=== PATIENT | male | born 1945 | race Caucasian/White ===

== ENCOUNTER 2016-08-11 15:46 | Outpatient (CLI) | payer MEDICARE | END 2016-08-11 15:47 | disposition home or self-care (01) | DX: N28.9 Disorder of kidney and ureter, unspecified (principal); R94.5 Abnormal results of liver function studies; E78.5 Hyperlipidemia, unspecified; E03.9 Hypothyroidism, unspecified ==

== ENCOUNTER 2017-03-14 08:24 | Outpatient (CLI) | payer MEDICARE ==
[2017-03-14 12:51] LABS: BASOPHILS # (AUTO) 0.1 10^3/uL (0.0-0.1); BASOPHILS % (AUTO) 0.7 %; EOSINOPHILS # (AUTO) 0.5 10^3/uL (0.0-0.7); EOSINOPHILS % (AUTO) 5.5 %; HGB - HEMOGLOBIN 13.3 g/dL (14.0-18.0); LYMPHOCYTES # (AUTO) 2.1 10^3/uL (1.5-3.5); LYMPHOCYTES % (AUTO) 21.9 %; MEAN CORPUSCULAR HEMOGLOBIN 32.3 pg (27.0-31.0); MEAN CORPUSCULAR VOLUME 94.9 fL (80.0-94.0); MEAN PLATELET VOLUME 7.5 fL (7.4-11.4); MONOCYTES % (AUTO) 10.5 %; NEUTROPHILS % (AUTO) 61.4 %; RED BLOOD COUNT 4.11 10^6/uL (4.70-6.10); RED CELL DISTRIBUTION WIDTH 12.6 % (12.0-15.0); UNCORRECTED WHITE BLOOD COUNT 9.8 x10^3/uL; WHITE BLOOD COUNT 9.8 x10^3/uL (4.8-10.8)
[2017-03-14 13:06] LABS: ALBUMIN/GLOBULIN RATIO 1.3 (1.0-2.2); BILIRUBIN,TOTAL < 0.2 mg/dL (0.2-1.0); BUN - BLOOD UREA NITROGEN 16 mg/dL (6-20); CARBON DIOXIDE - CO2 28 mmol/L (21-32); CHLORIDE 103 mmol/L (101-111); CHOL/HDL RATIO 3.5 (<5.0); CHOLESTEROL 119 mg/dL; CREATININE 1.2 mg/dL (0.6-1.2); GFR - MDRD 59 (>89); GLUCOSE 112 mg/dL (70-100); HDL CHOLESTEROL 34 mg/dL; LDL/HDL RATIO 1.6 (<3.6); POTASSIUM 3.9 mmol/L (3.5-5.0); SODIUM 139 mmol/L (135-145); TOTAL PROTEIN 7.3 g/dL (6.7-8.2); TRIGLYCERIDES 143 mg/dL; VLDL CHOLESTEROL 29 mg/dL
== END 2017-03-14 08:25 | disposition home or self-care (01) ==
LOC: LAB.WCP 08:24
PROVIDERS: ATTEND Family Medicine
DX: N28.9 Disorder of kidney and ureter, unspecified (principal); E78.5 Hyperlipidemia, unspecified; I95.9 Hypotension, unspecified
CPT/HCPCS: 36415; 80053; 80061; 84443; 85025

== ENCOUNTER 2017-11-08 08:00 | Outpatient (CLI) | payer MEDICARE ==
[2017-11-08 12:40] LABS: BASOPHILS # (AUTO) 0.1 10^3/uL (0.0-0.1); BASOPHILS % (AUTO) 0.8 %; EOSINOPHILS # (AUTO) 0.6 10^3/uL (0.0-0.7); EOSINOPHILS % (AUTO) 7.2 %; HGB - HEMOGLOBIN 13.9 g/dL (14.0-18.0); LYMPHOCYTES % (AUTO) 24.8 %; MEAN CORPUSCULAR HEMOGLOBIN 32.8 pg (27.0-31.0); MEAN CORPUSCULAR VOLUME 96.4 fL (80.0-94.0); MEAN PLATELET VOLUME 7.5 fL (7.4-11.4); MONOCYTES # (AUTO) 0.7 10^3/uL (0.0-1.0); NEUTROPHILS # (AUTO) 4.7 10^3/uL (1.5-6.6); NEUTROPHILS % (AUTO) 58.2 %; PLT - PLATELET COUNT 254 10^3/uL (130-450); RED BLOOD COUNT 4.23 10^6/uL (4.70-6.10); RED CELL DISTRIBUTION WIDTH 13.1 % (12.0-15.0); WHITE BLOOD COUNT 8.2 x10^3/uL (4.8-10.8)
[2017-11-08 13:13] LABS: ALBUMIN 4.2 g/dL (3.2-5.5); ALBUMIN/GLOBULIN RATIO 1.5 (1.0-2.2); ALKALINE PHOSPHATASE 48 IU/L (42-121); ALT ALANINE AMINOTRANSFERASE 16 IU/L (10-60); AST ASPARTATE AMINOTRANSFERASE 27 IU/L (10-42); BILIRUBIN,TOTAL 0.4 mg/dL (0.2-1.0); BUN - BLOOD UREA NITROGEN 19 mg/dL (6-20); CARBON DIOXIDE - CO2 29 mmol/L (21-32); CHLORIDE 100 mmol/L (101-111); CHOL/HDL RATIO 3.9 (<5.0); CHOLESTEROL 143 mg/dL; CREATININE 1.4 mg/dL (0.6-1.2); GFR - MDRD 50 (>89); GLUCOSE 121 mg/dL (70-100); HDL CHOLESTEROL 37 mg/dL; LDL CHOLESTEROL,CALCULATED 68 mg/dL; LDL/HDL RATIO 1.8 (<3.6); SODIUM 137 mmol/L (135-145); VLDL CHOLESTEROL 38 mg/dL
== END 2017-11-08 08:01 | disposition home or self-care (01) ==
LOC: LAB.WCP 08:00
PROVIDERS: ATTEND Family Medicine
DX: R73.01 Impaired fasting glucose (principal); E03.9 Hypothyroidism, unspecified; Z12.5 Encounter for screening for malignant neoplasm of prostate; E78.5 Hyperlipidemia, unspecified; R42 Dizziness and giddiness; N28.9 Disorder of kidney and ureter, unspecified
CPT/HCPCS: 36415; 80053; 80061; 84443; 85025; G0103; 83721; 84153

== ENCOUNTER 2018-06-27 11:42 | Outpatient (CLI) | payer MEDICARE ==
[2018-06-27 12:52] LABS: BASOPHILS # (AUTO) 0.1 10^3/uL (0.0-0.1); BASOPHILS % (AUTO) 0.6 %; EOSINOPHILS # (AUTO) 0.5 10^3/uL (0.0-0.7); EOSINOPHILS % (AUTO) 5.1 %; HGB - HEMOGLOBIN 14.1 g/dL (14.0-18.0); LYMPHOCYTES # (AUTO) 2.3 10^3/uL (1.5-3.5); LYMPHOCYTES % (AUTO) 25.6 %; MEAN CORPUSCULAR HEMOGLOBIN 33.5 pg (27.0-31.0); MEAN CORPUSCULAR VOLUME 95.7 fL (80.0-94.0); MONOCYTES # (AUTO) 0.9 10^3/uL (0.0-1.0); MONOCYTES % (AUTO) 9.9 %; NEUTROPHILS # (AUTO) 5.3 10^3/uL (1.5-6.6); NEUTROPHILS % (AUTO) 58.8 %; PLT - PLATELET COUNT 311 10^3/uL (130-450); RED BLOOD COUNT 4.21 10^6/uL (4.70-6.10); RED CELL DISTRIBUTION WIDTH 12.6 % (12.0-15.0); WHITE BLOOD COUNT 9.1 x10^3/uL (4.8-10.8)
[2018-06-27 13:19] LABS: ALBUMIN 4.2 g/dL (3.2-5.5); ALBUMIN/GLOBULIN RATIO 1.2 (1.0-2.2); BILIRUBIN,TOTAL 0.3 mg/dL (0.2-1.0); CALCIUM 9.1 mg/dL (8.5-10.3); CREATININE 1.3 mg/dL (0.6-1.2); TOTAL PROTEIN 7.6 g/dL (6.7-8.2)
--- NOTE | 2018-06-27 14:41 | XRAY Report ---
Reason: DYSPHAGIA,GERD Procedure Date: 06/27/2018 Accession Number: [id number] / [id number] Procedure: XR - Chest 2 View X-Ray CPT Code: 62804 FULL RESULT: EXAM: CHEST RADIOGRAPHY EXAM DATE: 06/27/2018 12:52 PM. CLINICAL HISTORY: Dysphagia, GERD. COMPARISON: Chest 2 view PA/lat 10/11/2016 9:32 AM. TECHNIQUE: 2 views. FINDINGS: Lungs/Pleura: No focal opacities evident. No pleural effusion. No pneumothorax. Normal volumes. Mediastinum: Heart and mediastinal contours are unremarkable. Other: None. IMPRESSION: No hiatal hernia on plain radiograph and no acute cardiopulmonary abnormality. RADIA
== END 2018-06-27 11:43 | disposition home or self-care (01) ==
LOC: LAB 11:42 → DI 11:43
PROVIDERS: ATTEND Internal Medicine Gastroenterology
DX: R13.10 Dysphagia, unspecified (principal); K21.9 Gastro-esophageal reflux disease without esophagitis
CPT/HCPCS: 36415; 71046; 80053; 85025; 93005

== ENCOUNTER 2018-06-29 10:46 | Day surgery (SDC) | payer MEDICARE ==
[2018-06-29] MEDS ORDERED: LACTATED RINGERS 1,000 ML IV ONE (11:51)
[2018-06-29] MEDS ORDERED: fentaNYL 250 MCG/5 ML VIAL IVP ONE (12:54)
[2018-06-29] MEDS ORDERED: LIDO GARGLE 30 ML BOTTLE ONE (12:54)
[2018-06-29] MEDS ORDERED: MIDAZOLAM 2 MG/2 ML VIAL IVP ONE (12:54)
[2018-06-29] MEDS ORDERED: LIDO GARGLE 30 ML BOTTLE TOP ONE (13:00)
[2018-06-29 14:36] VITALS: BP 111/53
== END 2018-06-29 10:47 | disposition home or self-care (01) ==
LOC: SDS 10:46
PROVIDERS: ATTEND Internal Medicine Gastroenterology
PROC: 0DB18ZX Excision of Upper Esophagus, Via Natural or Artificial Opening Endoscopic, Diagnostic (ICD-10-PCS; 2018-06-29)
PROC: 0DBN8ZZ Excision of Sigmoid Colon, Via Natural or Artificial Opening Endoscopic (ICD-10-PCS; principal; 2018-06-29 12:00)
PROC: 0DB38ZX Excision of Lower Esophagus, Via Natural or Artificial Opening Endoscopic, Diagnostic (ICD-10-PCS; 2018-06-29 12:00)
DX: Z12.11 Encounter for screening for malignant neoplasm of colon (principal); D12.5 Benign neoplasm of sigmoid colon; K22.10 Ulcer of esophagus without bleeding; R13.10 Dysphagia, unspecified; K21.9 Gastro-esophageal reflux disease without esophagitis; J44.9 Chronic obstructive pulmonary disease, unspecified; Z87.891 Personal history of nicotine dependence; E78.5 Hyperlipidemia, unspecified
CPT/HCPCS: 43239; 45380; A9270; J3010; J7120

== ENCOUNTER 2018-10-14 13:11 | Emergency (ER) | payer MEDICARE ==
[2018-10-14 13:19] VITALS: BP 102/58
--- NOTE | 2018-10-14 13:38 | ED Physician Documentation ---
PD HPI LOWER EXT INJURY - Stated complaint Stated Complaint: L ANKLE INJ - Chief complaint Chief Complaint: Ext Problem - History obtained from History obtained from: Patient - History of Present Illness PD HPI LOW EXT INJURY LOCATION: Left, Ankle Type of injury: Fall (He slipped and fell last night, it sounds like he forcefully plantarflexed his right foot and hurts the ankle. He has no pain at rest but severe pain when he tries to walk or bear weight. No other injuries.) Review of Systems Constitutional: reports: Reviewed and negative Cardiac: reports: Reviewed and negative Respiratory: reports: Reviewed and negative PD PAST MEDICAL HISTORY - Past Medical History Cardiovascular: High cholesterol Respiratory: Asthma, COPD Endocrine/Autoimmune: HyPOthyroidism GI: None : None HEENT: None Psych: Depression, Anxiety, Panic attacks Musculoskeletal: Osteoarthritis Derm: Eczema - Past Surgical History General: Colonoscopy Ortho: Other HEENT: Other - Present Medications Home Medications: Ambulatory Orders Medication Instructions Recorded Confirmed Albuterol [Proventil Hfa] 1 puffs INH Q4-6H 03/28/13 01/12/14 QUEtiapine [SEROquel] 200 mg PO QPM 03/28/13 01/12/14 RX: Simvastatin 40 mg PO DAILY 03/28/13 01/12/14 busPIRone [Buspar] 30 mg PO TID 03/28/13 01/12/14 Alprazolam [Xanax] 0.5 mg PO DAILY 03/29/13 01/12/14 Brimonidine 0.15% Ophth Drops 1 drops OPTH BID 03/29/13 01/12/14 [Alphagan P 0.15%] Brinzolamide 1% Ophth Drops [Azopt] 1 drops OPTH BID 03/29/13 01/12/14 Umeclidinium Brm/Vilanterol Tr 1 each IH DAILY 06/28/18 06/28/18 [Anoro Ellipta 62.5-25 Mcg INH] Knee Scooter 1 unit TD ONCE #1 10/14/18 - Allergies Allergies/Adverse Reactions: Allergies Allergy/AdvReac Type Severity Reaction Status Date / Time No Known Drug Allergies Allergy Verified 10/14/18 13:19 - Social History Does the pt smoke?: No Smoking Status: Never smoker Does the pt drink ETOH?: No Does the pt have substance abuse?: No - Immunizations Immunizations are current?: Yes PD ED PE NORMAL - Vitals Vital signs reviewed: Yes - General General: Alert and oriented X 3, No acute distress - Extremities Extremities: Other (Left leg: No proximal fibular tenderness. He is quite tender over the lateral malleolus and just superior to this. Very mild medial malleolar tenderness. No foot tenderness. No calcaneal tenderness. No Achilles tenderness.) - Neuro Neuro: Alert and oriented X 3, Normal speech Results - Vitals Vitals: Vital Signs - 24 hr 10/14/18 13:17 Temperature 36.2 C L Heart Rate 72 Respiratory 22 Rate Blood Pressure 102/58 L O2 Saturation 97 Oxygen O2 Source Room air - Rads (name of study) L ankle 3v Radiology: EMP read contemporaneously (Carli B minimally displaced distal fibular fracture with nondisplaced posterior mall frx) Procedures - Splint (location) L ankle Splint applied by: Tech Type of splint: Fiberglass, Short leg, Posterior Other: Patient tolerated well, No complications, Neurovascular intact, Crutches provided Departure - Departure Disposition: 01 Home, Self Care Clinical Impression: Closed fracture of left distal fibula Condition: Good Record reviewed to determine appropriate education?: Yes Instructions: ED Fx Lower Ext Follow-Up: [facility] [Provider Group] - Within 1 week Prescriptions: Knee Scooter 1 unit TD ONCE #1 Comments: Keep it elevated as much as possible, ice it through the splint. Follow-up with the orthopedic surgeon within the week, call Tuesday for an appointment. Tylenol as needed for pain. Discharge Date/Time: 10/14/18 14:25
--- NOTE | 2018-10-14 14:17 | XRAY Report ---
Reason: injury Procedure Date: 10/14/2018 Accession Number: [id number] / [id number] Procedure: XR - Ankle 3 View LT CPT Code: FULL RESULT: EXAM: LEFT ANKLE RADIOGRAPHY EXAM DATE: 10/14/2018 01:56 PM. CLINICAL HISTORY: Left ankle swollen and bruised COMPARISON: None. TECHNIQUE: 3 views. FINDINGS: Bones: Fracture of the distal left fibula extending to the ankle mortise with minimal posterolateral displacement of the distal fracture fragment by one cortical width. Nondisplaced posterior malleolar fracture. Joints: Nonweightbearing exam. Large tibiotalar effusion. Soft Tissues: Marked soft tissue swelling about the ankle IMPRESSION: 1. Distal left fibular fracture with minimal posterolateral displacement of the distal fracture fragment by one cortical width. 2. Nondisplaced posterior malleolar fracture. 3. Large tibiotalar fusion and marked soft tissue swelling RADIA
== END 2018-10-14 14:25 | disposition home or self-care (01) ==
LOC: ED 13:11
DX: S82.832A Other fracture of upper and lower end of left fibula, initial encounter for closed fracture (principal); S82.892A Other fracture of left lower leg, initial encounter for closed fracture; W01.0XXA Fall on same level from slipping, tripping and stumbling without subsequent striking against object, initial encounter; Y92.480 Sidewalk as the place of occurrence of the external cause
CPT/HCPCS: 29515; 99282; 99283

== ENCOUNTER 2019-01-19 09:50 | Outpatient (CLI) | payer MEDICARE ==
[2019-01-19 13:22] LABS: BASOPHILS # (AUTO) 0.1 10^3/uL (0.0-0.1); BASOPHILS % (AUTO) 1.2 %; EOSINOPHILS # (AUTO) 0.6 10^3/uL (0.0-0.7); EOSINOPHILS % (AUTO) 8.5 %; HGB - HEMOGLOBIN 13.3 g/dL (14.0-18.0); LYMPHOCYTES # (AUTO) 2.2 10^3/uL (1.5-3.5); LYMPHOCYTES % (AUTO) 33.2 %; MEAN CORPUSCULAR HEMOGLOBIN 31.4 pg (27.0-31.0); MEAN CORPUSCULAR HGB CONC 31.7 g/dL (32.0-36.0); MEAN CORPUSCULAR VOLUME 99.3 fL (80.0-94.0); MEAN PLATELET VOLUME 9.4 fL (7.4-11.4); MONOCYTES # (AUTO) 0.7 10^3/uL (0.0-1.0); MONOCYTES % (AUTO) 10.6 %; NEUTROPHILS # (AUTO) 3.1 10^3/uL (1.5-6.6); NEUTROPHILS % (AUTO) 46.2 %; PLT - PLATELET COUNT 260 10^3/uL (130-450); RED BLOOD COUNT 4.23 10^6/uL (4.70-6.10); RED CELL DISTRIBUTION WIDTH 13.2 % (12.0-15.0); WHITE BLOOD COUNT 6.6 x10^3/uL (4.8-10.8)
[2019-01-19 13:45] LABS: ALBUMIN 4.1 g/dL (3.2-5.5); ALBUMIN/GLOBULIN RATIO 1.2 (1.0-2.2); ALKALINE PHOSPHATASE 79 IU/L (42-121); ALT ALANINE AMINOTRANSFERASE 15 IU/L (10-60); AST ASPARTATE AMINOTRANSFERASE 22 IU/L (10-42); BILIRUBIN,TOTAL 0.5 mg/dL (0.2-1.0); BUN - BLOOD UREA NITROGEN 12 mg/dL (6-20); CALCIUM 9.1 mg/dL (8.5-10.3); CARBON DIOXIDE - CO2 26 mmol/L (21-32); CHLORIDE 104 mmol/L (101-111); CHOL/HDL RATIO 4.6 (<5.0); CHOLESTEROL 171 mg/dL; CREATININE 1.3 mg/dL (0.6-1.2); GFR - MDRD 54 (>89); GLUCOSE 125 mg/dL (70-100); HDL CHOLESTEROL 37 mg/dL; LDL CHOLESTEROL,CALCULATED 69 mg/dL; LDL/HDL RATIO 1.9 (<3.6); SODIUM 141 mmol/L (135-145); TOTAL PROTEIN 7.4 g/dL (6.7-8.2); VLDL CHOLESTEROL 65 mg/dL
== END 2019-01-19 09:51 | disposition home or self-care (01) ==
LOC: LAB.WCP 09:50
PROVIDERS: ATTEND Physician Assistant Medical
DX: E78.5 Hyperlipidemia, unspecified (principal); E03.9 Hypothyroidism, unspecified
CPT/HCPCS: 36415; 80053; 80061; 83721; 84443; 85025

== ENCOUNTER 2019-07-19 09:38 | Outpatient (CLI) | payer MEDICARE ==
[2019-07-19 12:35] LABS: ALBUMIN/GLOBULIN RATIO 1.3 (1.0-2.2); ALKALINE PHOSPHATASE 71 IU/L (42-121); ALT ALANINE AMINOTRANSFERASE 20 IU/L (10-60); AST ASPARTATE AMINOTRANSFERASE 25 IU/L (10-42); BILIRUBIN,TOTAL 0.4 mg/dL (0.2-1.0); BUN - BLOOD UREA NITROGEN 19 mg/dL (6-20); CALCIUM 9.3 mg/dL (8.5-10.3); CARBON DIOXIDE - CO2 33 mmol/L (21-32); CHLORIDE 100 mmol/L (101-111); CHOL/HDL RATIO 3.3 (<5.0); CHOLESTEROL 153 mg/dL; CREATININE 1.1 mg/dL (0.6-1.2); GFR - MDRD 65 (>89); GLUCOSE 119 mg/dL (70-100); HDL CHOLESTEROL 47 mg/dL; LDL CHOLESTEROL,CALCULATED 78 mg/dL; LDL/HDL RATIO 1.7 (<3.6); SODIUM 142 mmol/L (135-145); TOTAL PROTEIN 7.1 g/dL (6.7-8.2); VLDL CHOLESTEROL 28 mg/dL
[2019-07-19 13:00] LABS: HB2 TOTAL 13.9 g/dL; HEMOGLOBIN A1C 0.61 g/dL; HEMOGLOBIN A1C % 6.2 % (4.6-6.2)
== END 2019-07-19 23:59 | disposition home or self-care (01) ==
LOC: LAB.WCP 09:38
PROVIDERS: ATTEND Physician Assistant Medical
DX: E78.5 Hyperlipidemia, unspecified (principal); R73.9 Hyperglycemia, unspecified
CPT/HCPCS: 36415; 80053; 80061; 83036; 83721

== ENCOUNTER 2019-10-04 13:57 | Outpatient (CLI) | payer MEDICARE ==
--- NOTE | 2019-10-04 16:18 | XRAY Report ---
Reason: COPD Procedure Date: 10/04/2019 Accession Number: [id number] / [id number] Procedure: WCP - Chest 2 View X-Ray CPT Code: 87396 Final Report FULL RESULT: EXAM: CHEST RADIOGRAPHY EXAM DATE: 10/04/2019 02:24 PM. CLINICAL HISTORY: COPD. COMPARISON: CHEST 2 VIEW 06/27/2018 12:49 PM. TECHNIQUE: 2 views. FINDINGS: Lungs/Pleura: Linear basilar scarring. Upper normal lung volumes. No dense consolidation. No pneumothorax. Right lung granulomas noted. Mediastinum: Heart size is normal. Aorta is tortuous. Aortic atherosclerosis. Other: Degenerative changes of the thoracic spine. Healed left rib fractures. IMPRESSION: 1. No acute disease in the chest. RADIA
== END 2019-10-04 23:59 | disposition home or self-care (01) ==
LOC: DI.WCP 13:57
PROVIDERS: ATTEND Physician Assistant Medical
DX: J44.9 Chronic obstructive pulmonary disease, unspecified (principal)
CPT/HCPCS: 71046

== ENCOUNTER 2019-10-10 14:45 | Outpatient (CLI) | payer MEDICARE ==
[~2019-10-10 14:45] MED LIST: ALBUTEROL NEB 2.5 MG/3 ML INH SCH
== END 2019-10-10 14:46 | disposition home or self-care (01) ==
LOC: RT 14:45
PROVIDERS: ATTEND Physician Assistant Medical
DX: J44.9 Chronic obstructive pulmonary disease, unspecified (principal)
CPT/HCPCS: 94060; 94729

== ENCOUNTER 2020-01-18 09:03 | Outpatient (CLI) | payer MEDICARE ==
[2020-01-18 11:52] LABS: ALBUMIN/GLOBULIN RATIO 1.3 (1.0-2.2); ALKALINE PHOSPHATASE 79 IU/L (42-121); ALT ALANINE AMINOTRANSFERASE 14 IU/L (10-60); AST ASPARTATE AMINOTRANSFERASE 20 IU/L (10-42); BILIRUBIN,TOTAL 0.4 mg/dL (0.2-1.0); BUN - BLOOD UREA NITROGEN 20 mg/dL (6-20); CALCIUM 8.6 mg/dL (8.5-10.3); CARBON DIOXIDE - CO2 31 mmol/L (21-32); CHLORIDE 105 mmol/L (101-111); CHOL/HDL RATIO 4.4 (<5.0); CHOLESTEROL 160 mg/dL; CREATININE 1.1 mg/dL (0.6-1.2); GLUCOSE 131 mg/dL (70-100); HDL CHOLESTEROL 36 mg/dL; LDL CHOLESTEROL,CALCULATED 80 mg/dL; LDL/HDL RATIO 2.2 (<3.6); SODIUM 139 mmol/L (135-145); TOTAL PROTEIN 7.1 g/dL (6.7-8.2); VLDL CHOLESTEROL 44 mg/dL
== END 2020-01-18 23:59 | disposition home or self-care (01) ==
LOC: LAB.WCP 09:03
PROVIDERS: ATTEND Physician Assistant Medical
DX: E78.5 Hyperlipidemia, unspecified (principal)
CPT/HCPCS: 36415; 80053; 80061; 83721

== ENCOUNTER 2020-07-24 08:00 | Outpatient (CLI) | payer MEDICARE ==
[2020-07-24 14:50] LABS: HEMOGLOBIN A1c% 5.7 % (4.27-6.07)
[2020-07-24 14:56] LABS: ALBUMIN 4.3 g/dL (3.2-5.5); ALKALINE PHOSPHATASE 67 IU/L (42-121); ALT ALANINE AMINOTRANSFERASE 19 IU/L (10-60); AST ASPARTATE AMINOTRANSFERASE 24 IU/L (10-42); BILIRUBIN,TOTAL 0.4 mg/dL (0.2-1.0); BUN - BLOOD UREA NITROGEN 21 mg/dL (6-20); CALCIUM 9.4 mg/dL (8.5-10.3); CARBON DIOXIDE - CO2 30 mmol/L (21-32); CHLORIDE 102 mmol/L (101-111); CREATININE 1.1 mg/dL (0.6-1.2); GLUCOSE 113 mg/dL (70-100); SODIUM 138 mmol/L (135-145); TOTAL PROTEIN 7.4 g/dL (6.7-8.2)
[2020-07-24 14:57] LABS: ALBUMIN/GLOBULIN RATIO 1.4 (1.0-2.2); CHOL/HDL RATIO 3.7 (<5.0); CHOLESTEROL 152 mg/dL; HDL CHOLESTEROL 41 mg/dL; LDL CHOLESTEROL,CALCULATED 77 mg/dL; LDL/HDL RATIO 1.9 (<3.6); VLDL CHOLESTEROL 34 mg/dL
== END 2020-07-24 08:01 | disposition home or self-care (01) ==
LOC: LAB.WCP 08:00
PROVIDERS: ATTEND Physician Assistant Medical
DX: E78.5 Hyperlipidemia, unspecified (principal); R73.9 Hyperglycemia, unspecified; E03.9 Hypothyroidism, unspecified
CPT/HCPCS: 36415; 80053; 80061; 83036; 83721; 84443

== ENCOUNTER 2020-08-14 11:18 | Outpatient (CLI) | payer MEDICARE ==
[2020-08-14] MEDS ORDERED: IOVERSOL 320 50 ML VIAL ONE (11:32)
[2020-08-14] MEDS ORDERED: IOVERSOL 320 100 ML VIAL IVP ONE ×2 (11:33→13:38)
[2020-08-14] MEDS ORDERED: IOVERSOL 320 50 ML VIAL PO ONE (13:38)
--- NOTE | 2020-08-15 16:55 | CT Report ---
PROCEDURE: Abdomen/Pelvis W INDICATIONS: ABNORMAL WEIGHT LOSS CONTRAST: IV CONTRAST: Optiray 320 ml: 100 PO CONTRAST: Optiray 320 ml50 TECHNIQUE: After the administration of intravenous and oral contrast, 5 mm thick sections acquired from the diap hragms to the symphysis. 5 mm thick coronal and sagittal reformats were acquired. For radiation dos e reduction, the following was used: automated exposure control, adjustment of mA and/or kV accordin g to patient size. COMPARISON: None. FINDINGS: Image quality: Excellent. ABDOMEN: Scattered subsegmental scarring/atelectasis. No acute consolidation. Coronary artery disease. Solid organs: Hepatic steatosis Spleen unremarkable. Gallbladder negative Biliary system is non dilated. Pancreas enhances normally . No adrenal nodules. No hydronephrosis. Bilateral simple appearing renal cysts. Peritoneum and darren l: Bowel loops demonstrate normal wall thickness and caliber. No free fluid or air. Nodes and vessels: No retroperitoneal or mesenteric adenopathy by size criteria. Aorta and inferior vena cava are normal in size. Scattered vascular calcifications are present in the aorta. 3.1 cm d istal abdominal aortic ectasia which could be surveilled with serial ultrasound Miscellaneous: No ventral hernias. PELVIS: Circumferential bladder wall thickening. Miscellaneous: No inguinal hernias or adenopathy. Bones: Bilateral femoral head avascular necrosis. No definite articular surface collapse.. No verteb ral body compression fractures. IMPRESSION: Circumferential bladder wall thickening which could reflect cystitis although technically age indeter minate. Please correlate clinically with urinalysis data. Hepatic steatosis Bilateral renal cysts 3.1 cm abdominal aortic ectasia. This could be monitored with ultrasound as clinically warranted. Bilateral femoral head avascular necrosis. No definite articular surface collapse seen at this time h owever continued surveillance could be performed with radiographs. Reviewed by: Gilmar Dominguez MD on 08/15/2020 4:54 PM PST Approved by: Gilmar Dominguez MD on 08/15/2020 4:54 PM PST Station ID: [id number]
--- NOTE | 2020-08-15 16:55 | CT Report ---
PROCEDURE: CHEST W INDICATIONS: ABNORMAL WEIGHT LOSS CONTRAST: IV CONTRAST: Optiray 320 ml: 100 PO CONTRAST: Optiray 320 ml50 TECHNIQUE: After the administration of intravenous contrast, 5 mm thick sections acquired from the pulmonary api marium to the posterior costophrenic angles. 7 mm thick coronal MIP reformats were acquired. For radia tion dose reduction, the following was used: automated exposure control, adjustment of mA and/or kV according to patient size. COMPARISON: Chest radiograph dated 10/04/2019 FINDINGS: Image quality: Excellent. Lungs and pleura: No acute air space opacities. There is a 4 mm posterior right apical nodule seen o n image 80, series 3. No pleural effusions or pneumothorax. Central and peripheral airways are paten t and normal in caliber. No septal thickening or nodularity. Subsegmental atelectasis versus scarring of the medial right middle lobe. Minimal bibasilar atelectasis. Mediastinum: Heart size is normal. Extensive atherosclerotic calcifications of the coronary arterie s. No pericardial effusion. No mediastinal or hilar adenopathy by size criteria. Thoracic aorta and central pulmonary arteries are normal in size. Moderate atherosclerotic calcific changes of the aor tic arch. No aneurysmal dilatation. No evidence for dissection. Esophagus is normal in caliber. No h iatal hernia. Bones and chest wall: No suspicious bony lesions. No acute vertebral body compression fractures. N o axillary or supraclavicular adenopathy by size criteria. Thyroid gland is unremarkable. Abdomen: Limited visualization of the upper abdominal structures appear unremarkable. IMPRESSION: 1. CT chest without acute cardiopulmonary abnormalities. No suspicious mass, adenopathy, or the findi ng to explain patient's weight loss. 2. There is a 4 mm posterior right apical pulmonary nodule. Recommend follow-up noncontrast low-dose lung cancer screening CT in one year. 3. Atherosclerotic vascular disease. Reviewed by: Darien Christina MD on 08/15/2020 3:54 PM AKST Approved by: Darien Christina MD on 08/15/2020 3:54 PM AKST Station ID: [id number]
== END 2020-08-14 11:19 | disposition home or self-care (01) ==
LOC: DI 11:18
PROVIDERS: ATTEND Physician Assistant Medical
DX: R91.1 Solitary pulmonary nodule (principal); I70.90 Unspecified atherosclerosis; R93.41 Abnormal radiologic findings on diagnostic imaging of renal pelvis, ureter, or bladder; K76.0 Fatty (change of) liver, not elsewhere classified; N28.1 Cyst of kidney, acquired; M87.9 Osteonecrosis, unspecified
CPT/HCPCS: 71260; 74177; Q9967

== ENCOUNTER 2020-09-08 08:00 | Outpatient (CLI) | payer MEDICARE ==
--- NOTE | 2020-09-08 15:16 | XRAY Report ---
PROCEDURE: Hips 2V BILAT INDICATIONS: AVASCULAR NECROSIS, FEMORAL HEAD TECHNIQUE: One view of the pelvis and one view of each hip. COMPARISON: None FINDINGS: Bones: No fractures or dislocations. No suspicious bony lesions. The visualized pelvic ring appear s intact. Mild bilateral hip joint space narrowing and periarticular osteophyte formation. Soft tissues: No suspicious soft tissue calcifications or masses. IMPRESSION: Bilateral hip osteoarthritis. No acute fracture. No osseous lesion. If symptoms and/or clinical suspi cion for pathology continue, further assessment with repeat plain films, or advanced imaging (e.g., C T, MRI, or bone scan) is recommended for further assessment. Reviewed by: Trell Lopez MD on 09/08/2020 3:15 PM PST Approved by: Trell Lopez MD on 09/08/2020 3:15 PM PST Station ID: [id number]
== END 2020-09-08 23:59 | disposition home or self-care (01) ==
LOC: DI.N 08:00
PROVIDERS: ATTEND Orthopaedic Surgery
DX: M87.059 Idiopathic aseptic necrosis of unspecified femur (principal); M16.0 Bilateral primary osteoarthritis of hip

== ENCOUNTER 2020-09-27 13:38 | Outpatient (CLI) | payer MEDICARE ==
--- NOTE | 2020-09-29 09:51 | MRI Report ---
PROCEDURE: Hip LT W/O INDICATIONS: AVASCULAR NECROSIS, FEMORAL HEAD TECHNIQUE: Noncontrast coronal T1 spin echo and STIR through the bony pelvis. Coronal and axial T2 fast spin ec ho with fat saturation, sagittal T1 spin echo, and oblique axial T2 fast spin echo with fat saturatio n through the hip. COMPARISON: Hip radiographs 09/08/2020 FINDINGS: Image quality: Excellent. Hip joint: There is avascular necrosis of the anterior to superior humeral head measuring approximate ly 3.5 x 2.5 x 3.2 cm with associated double line sign. There is no collapse of the articular surface . Focal cartilage fissuring is seen at the superior labrum. There is nondisplaced tearing of the ante rior to anterosuperior labrum. Bones and joints: There is mild avascular necrosis of the contralateral right femoral head without c ollapse of the articular surface. Subchondral cystic changes are seen in the anterior right acetabulu m. Bone marrow of the pelvic ring show normal signal throughout. No intraosseous lesions or fracture s. No avascular necrosis of the femoral heads. Disc desiccation and facet hypertrophy are seen in th e included lower lumbar spine. Tendons: The gluteus medius and minimus tendons appear intact, without associated muscle atrophy. T he iliopsoas tendon appears intact, without adjacent bursal fluid collections. The origin of the ham string tendon is intact at the ischial tuberosity. Soft tissues: Visualized muscles demonstrate normal bulk and internal signal. The proximal sciatic neurovascular bundle appears normal adjacent to the hamstring tendons. No free pelvic fluid. Bladde r wall thickness is normal. Genitourinary structures and bowel loops appear normal where visualized. IMPRESSION: 1. Moderate to large area of avascular necrosis in the anterior to the superior portion of the left femoral head. There is no collapse of the overlying articular surface. 2. Small area of avascular necrosis in the right femoral head without articular surface collapse. 3. Nondisplaced tearing of the anterior to anterosuperior left acetabular labrum. 4. Mild cartilage fissuring in the superior left hip. Reviewed by: Maik Mcclain MD on 09/29/2020 9:49 AM PST Approved by: Maik Mcclain MD on 09/29/2020 9:49 AM PST Station ID: [id number]
== END 2020-09-27 13:39 | disposition home or self-care (01) ==
LOC: DI 13:38
PROVIDERS: ATTEND Orthopaedic Surgery
DX: M87.052 Idiopathic aseptic necrosis of left femur (principal); M87.051 Idiopathic aseptic necrosis of right femur; S73.192A Other sprain of left hip, initial encounter

== ENCOUNTER 2021-01-27 08:00 | Outpatient (CLI) | payer MEDICARE ==
[2021-01-27 18:04] LABS: BASOPHILS # (AUTO) 0.1 10^3/uL (0.0-0.1); BASOPHILS % (AUTO) 1.1 %; EOSINOPHILS # (AUTO) 0.4 10^3/uL (0.0-0.7); EOSINOPHILS % (AUTO) 5.8 %; HCT - HEMATOCRIT 42.3 % (42.0-52.0); HGB - HEMOGLOBIN 13.9 g/dL (14.0-18.0); LYMPHOCYTES # (AUTO) 1.9 10^3/uL (1.5-3.5); LYMPHOCYTES % (AUTO) 26.9 %; MEAN CORPUSCULAR HEMOGLOBIN 33.3 pg (27.0-31.0); MEAN CORPUSCULAR HGB CONC 32.9 g/dL (32.0-36.0); MEAN CORPUSCULAR VOLUME 101.4 fL (80.0-94.0); MEAN PLATELET VOLUME 9.1 fL (7.4-11.4); MONOCYTES # (AUTO) 0.7 10^3/uL (0.0-1.0); MONOCYTES % (AUTO) 9.3 %; NEUTROPHILS % (AUTO) 56.8 %; PLT - PLATELET COUNT 295 10^3/uL (130-450); RED BLOOD COUNT 4.17 10^6/uL (4.70-6.10); RED CELL DISTRIBUTION WIDTH 12.3 % (12.0-15.0); WHITE BLOOD COUNT 7.1 x10^3/uL (4.8-10.8)
[2021-01-27 18:19] LABS: ALBUMIN 4.6 g/dL (3.2-5.5); ALBUMIN/GLOBULIN RATIO 1.3 (1.0-2.2); ALKALINE PHOSPHATASE 48 IU/L (42-121); ALT ALANINE AMINOTRANSFERASE 16 IU/L (10-60); AST ASPARTATE AMINOTRANSFERASE 26 IU/L (10-42); BILIRUBIN,TOTAL 0.7 mg/dL (0.2-1.0); BUN - BLOOD UREA NITROGEN 27 mg/dL (6-20); CALCIUM 9.4 mg/dL (8.5-10.3); CARBON DIOXIDE - CO2 32 mmol/L (21-32); CHLORIDE 101 mmol/L (101-111); CHOL/HDL RATIO 3.8 (<5.0); CHOLESTEROL 158 mg/dL; CREATININE 1.4 mg/dL (0.6-1.2); GFR - MDRD 49 (>89); GLUCOSE 115 mg/dL (70-100); HDL CHOLESTEROL 42 mg/dL; LDL CHOLESTEROL,CALCULATED 75 mg/dL; LDL/HDL RATIO 1.8 (<3.6); POTASSIUM 4.1 mmol/L (3.5-5.0); SODIUM 140 mmol/L (135-145); TOTAL PROTEIN 8.2 g/dL (6.7-8.2); TRIGLYCERIDES 203 mg/dL; VLDL CHOLESTEROL 41 mg/dL
[2021-01-27 20:27] LABS: ESTIMATED AVERAGE GLUCOSE 120 mg/dL (70-100); HEMOGLOBIN A1c% 5.8 % (4.27-6.07)
== END 2021-01-27 23:59 | disposition home or self-care (01) ==
LOC: LAB.WCP 08:00
PROVIDERS: ATTEND Physician Assistant Medical
DX: E78.5 Hyperlipidemia, unspecified (principal); R73.9 Hyperglycemia, unspecified; K21.9 Gastro-esophageal reflux disease without esophagitis
CPT/HCPCS: 36415; 80053; 80061; 83036; 83721; 85025

== ENCOUNTER 2021-03-13 13:07 | Outpatient (CLI) | payer MEDICARE ==
[2021-03-13 19:01] LABS: CALCIUM 10.2 mg/dL (8.5-10.3); CREATININE 1.6 mg/dL (0.6-1.2); POTASSIUM 4.6 mmol/L (3.5-5.0)
== END 2021-03-13 23:59 | disposition home or self-care (01) ==
LOC: LAB.WCP 13:07
PROVIDERS: ATTEND Physician Assistant Medical
DX: N28.9 Disorder of kidney and ureter, unspecified (principal)
CPT/HCPCS: 36415; 80048

== ENCOUNTER 2021-08-14 08:00 | Outpatient (CLI) | payer MEDICARE ==
[2021-08-14 13:45] LABS: BASOPHILS # (AUTO) 0.1 10^3/uL (0.0-0.1); BASOPHILS % (AUTO) 0.6 %; EOSINOPHILS # (AUTO) 0.7 10^3/uL (0.0-0.7); EOSINOPHILS % (AUTO) 7.5 %; HCT - HEMATOCRIT 38.7 % (42.0-52.0); HGB - HEMOGLOBIN 12.7 g/dL (14.0-18.0); LYMPHOCYTES # (AUTO) 1.9 10^3/uL (1.5-3.5); LYMPHOCYTES % (AUTO) 20.7 %; MEAN CORPUSCULAR HGB CONC 32.8 g/dL (32.0-36.0); MEAN CORPUSCULAR VOLUME 100.5 fL (80.0-94.0); MEAN PLATELET VOLUME 9.7 fL (7.4-11.4); MONOCYTES # (AUTO) 0.9 10^3/uL (0.0-1.0); MONOCYTES % (AUTO) 9.2 %; NEUTROPHILS # (AUTO) 5.7 10^3/uL (1.5-6.6); NEUTROPHILS % (AUTO) 61.7 %; PLT - PLATELET COUNT 250 10^3/uL (130-450); RED BLOOD COUNT 3.85 10^6/uL (4.70-6.10); RED CELL DISTRIBUTION WIDTH 12.1 % (12.0-15.0); WHITE BLOOD COUNT 9.3 x10^3/uL (4.8-10.8)
[2021-08-14 14:10] LABS: ALBUMIN 4.2 g/dL (3.2-5.5); ALBUMIN/GLOBULIN RATIO 1.2 (1.0-2.2); ALKALINE PHOSPHATASE 57 IU/L (42-121); ALT ALANINE AMINOTRANSFERASE 13 IU/L (10-60); AST ASPARTATE AMINOTRANSFERASE 25 IU/L (10-42); BILIRUBIN,TOTAL 0.2 mg/dL (0.2-1.0); BUN - BLOOD UREA NITROGEN 35 mg/dL (6-20); CALCIUM 9.8 mg/dL (8.5-10.3); CARBON DIOXIDE - CO2 32 mmol/L (21-32); CHLORIDE 99 mmol/L (101-111); CREATININE 1.4 mg/dL (0.6-1.2); GFR - MDRD 49 (>89); GLUCOSE 114 mg/dL (70-100); POTASSIUM 4.1 mmol/L (3.5-5.0); SODIUM 140 mmol/L (135-145); TOTAL PROTEIN 7.6 g/dL (6.7-8.2)
[2021-08-14 14:15] LABS: THYROID STIMULATING HORMONE 3.05 uIU/mL (0.34-5.60)
[2021-08-14 14:43] LABS: CHOL/HDL RATIO 3.3 (<5.0); CHOLESTEROL 139 mg/dL; HDL CHOLESTEROL 42 mg/dL; LDL CHOLESTEROL,CALCULATED 65 mg/dL; LDL/HDL RATIO 1.5 (<3.6); TRIGLYCERIDES 162 mg/dL; VLDL CHOLESTEROL 32 mg/dL
== END 2021-08-14 23:59 | disposition home or self-care (01) ==
LOC: LAB.WCP 08:00
PROVIDERS: ATTEND Physician Assistant Medical
DX: E03.9 Hypothyroidism, unspecified (principal); K21.9 Gastro-esophageal reflux disease without esophagitis; E78.5 Hyperlipidemia, unspecified
CPT/HCPCS: 36415; 80053; 80061; 83721; 84443; 85025

== ENCOUNTER 2021-09-15 13:40 | Outpatient (CLI) | payer MEDICARE ==
[2021-09-15 18:01] LABS: BASOPHILS # (AUTO) 0.1 10^3/uL (0.0-0.1); BASOPHILS % (AUTO) 0.6 %; EOSINOPHILS # (AUTO) 0.5 10^3/uL (0.0-0.7); EOSINOPHILS % (AUTO) 5.4 %; HCT - HEMATOCRIT 38.4 % (42.0-52.0); HGB - HEMOGLOBIN 12.7 g/dL (14.0-18.0); LYMPHOCYTES # (AUTO) 2.5 10^3/uL (1.5-3.5); LYMPHOCYTES % (AUTO) 29.6 %; MEAN CORPUSCULAR HGB CONC 33.1 g/dL (32.0-36.0); MEAN CORPUSCULAR VOLUME 99.7 fL (80.0-94.0); MEAN PLATELET VOLUME 9.1 fL (7.4-11.4); MONOCYTES % (AUTO) 12.1 %; NEUTROPHILS # (AUTO) 4.3 10^3/uL (1.5-6.6); NEUTROPHILS % (AUTO) 52.1 %; PLT - PLATELET COUNT 279 10^3/uL (130-450); RED BLOOD COUNT 3.85 10^6/uL (4.70-6.10); RED CELL DISTRIBUTION WIDTH 12.7 % (12.0-15.0); WHITE BLOOD COUNT 8.3 x10^3/uL (4.8-10.8)
[2021-09-15 19:09] LABS: % IRON SATURATION 21 % (20-50); IRON 71 ug/dL (45-182); TOTAL IRON BINDING CAPACITY 330 ug/dL (250-450); TRANSFERRIN 236 mg/dL (180-329)
[2021-09-15 19:21] LABS: FERRITIN 56.3 ng/mL (23.9-336.2)
[2021-09-15 19:24] LABS: FOLATE 18.63 ng/mL (5.90 - >24.8)
== END 2021-09-15 13:41 | disposition home or self-care (01) ==
LOC: LAB.N 13:40
PROVIDERS: ATTEND Physician Assistant Medical
DX: K21.9 Gastro-esophageal reflux disease without esophagitis (principal); D64.9 Anemia, unspecified; E78.5 Hyperlipidemia, unspecified
CPT/HCPCS: 36415; 82607; 82728; 82746; 83540; 84466; 85025

== ENCOUNTER 2021-09-25 14:54 | Outpatient (CLI) | payer MEDICARE | END 2021-09-25 14:55 | disposition home or self-care (01) | LOC: LAB.N 14:54 | PROVIDERS: ATTEND Nurse Practitioner Family | DX: Z53.9 Procedure and treatment not carried out, unspecified reason (principal) ==

== ENCOUNTER 2021-09-28 10:30 | Outpatient (CLI) | payer MEDICARE ==
[2021-09-28 18:25] LABS: FECAL OCCULT BLOOD (FIT) NEGATIVE (NEGATIVE)
== END 2021-09-28 23:59 | disposition home or self-care (01) ==
LOC: LAB.N 10:30
PROVIDERS: ATTEND Nurse Practitioner Family
DX: D64.9 Anemia, unspecified (principal)
CPT/HCPCS: 82274

== ENCOUNTER 2021-10-29 14:04 | Outpatient (CLI) | payer MEDICARE ==
[2021-10-29 18:12] LABS: BASOPHILS # (AUTO) 0.1 10^3/uL (0.0-0.1); BASOPHILS % (AUTO) 0.6 %; EOSINOPHILS # (AUTO) 0.4 10^3/uL (0.0-0.7); EOSINOPHILS % (AUTO) 4.1 %; HCT - HEMATOCRIT 37.3 % (42.0-52.0); HGB - HEMOGLOBIN 12.3 g/dL (14.0-18.0); LYMPHOCYTES # (AUTO) 2.7 10^3/uL (1.5-3.5); LYMPHOCYTES % (AUTO) 28.7 %; MEAN PLATELET VOLUME 9.4 fL (7.4-11.4); MONOCYTES % (AUTO) 10.1 %; NEUTROPHILS # (AUTO) 5.3 10^3/uL (1.5-6.6); NEUTROPHILS % (AUTO) 56.2 %; PLT - PLATELET COUNT 266 10^3/uL (130-450); RED BLOOD COUNT 3.73 10^6/uL (4.70-6.10); RED CELL DISTRIBUTION WIDTH 12.9 % (12.0-15.0); WHITE BLOOD COUNT 9.4 x10^3/uL (4.8-10.8)
== END 2021-10-29 14:05 | disposition home or self-care (01) ==
LOC: LAB.N 14:04
PROVIDERS: ATTEND Nurse Practitioner Family
DX: D64.9 Anemia, unspecified (principal)
CPT/HCPCS: 36415; 85025

== ENCOUNTER 2022-06-20 13:29 | Emergency (ER) | payer MEDICARE ==
[2022-06-20 14:36] LABS: BASOPHILS % (AUTO) 0.2 %; EOSINOPHILS % (AUTO) 0.2 %; HCT - HEMATOCRIT 39.8 % (42.0-52.0); HGB - HEMOGLOBIN 13.3 g/dL (14.0-18.0); LYMPHOCYTES % (AUTO) 21.2 %; MEAN CORPUSCULAR HEMOGLOBIN 31.6 pg (27.0-31.0); MEAN CORPUSCULAR HGB CONC 33.4 g/dL (32.0-36.0); MEAN CORPUSCULAR VOLUME 94.5 fL (80.0-94.0); MEAN PLATELET VOLUME 9.1 fL (7.4-11.4); MONOCYTES % (AUTO) 10.8 %; NEUTROPHILS # (AUTO) 6.4 10^3/uL (1.5-6.6); NEUTROPHILS % (AUTO) 67.5 %; PLT - PLATELET COUNT 257 10^3/uL (130-450); RED BLOOD COUNT 4.21 10^6/uL (4.70-6.10); RED CELL DISTRIBUTION WIDTH 12.6 % (12.0-15.0); WHITE BLOOD COUNT 9.5 x10^3/uL (4.8-10.8)
[2022-06-20 14:46] LABS: ALBUMIN 4.5 g/dL (3.2-5.5); ALBUMIN/GLOBULIN RATIO 1.3 (1.0-2.2); BILIRUBIN,TOTAL 0.8 mg/dL (0.2-1.0); CALCIUM 10.3 mg/dL (8.5-10.3); CREATININE 1.2 mg/dL (0.6-1.2); POTASSIUM 3.5 mmol/L (3.5-5.0)
--- NOTE | 2022-06-20 15:51 | ED Physician Documentation ---
PD HPI NVD - Stated complaint Stated Complaint: V/D WEAK - Chief complaint Chief Complaint: Abd Pain - History obtained from History obtained from: Patient - History of Present Illness Timing - onset: How many days ago (4) Timing - duration: Days (4) Timing - details: Abrupt onset, Still present Associated symptoms: Fever, Loss of appetite. No: Hematemesis, Melena (noted some dark stool after taking peptobismol.), Hematochezia, Near syncope / syncope Contributing factors: No: Sick contact, Bad food, Recent antibiotics Improved by: BM. No: Vomiting Worsened by: Eating Similar symptoms before: Has not had sx before Recently seen: Not recently seen Review of Systems Constitutional: reports: Fever, Chills, Myalgias Nose: denies: Rhinorrhea / runny nose, Congestion Throat: denies: Sore throat Respiratory: denies: Cough GI: reports: Abdominal Pain, Nausea, Vomiting, Diarrhea : denies: Dysuria, Frequency Neurologic: reports: Generalized weakness, Near syncope (today). denies: Altered mental status, Headache PD PAST MEDICAL HISTORY - Past Medical History Cardiovascular: High cholesterol Respiratory: Asthma, COPD Endocrine/Autoimmune: HyPOthyroidism GI: None : None HEENT: None Psych: Depression, Anxiety, Panic attacks Musculoskeletal: Osteoarthritis Derm: Eczema - Past Surgical History Past Surgical History: No General: Colonoscopy Ortho: Other HEENT: Other - Present Medications Home Medications: Ambulatory Orders Medication Instructions Recorded Confirmed Albuterol [Proventil Hfa] 1 puffs INH Q4-6H 03/28/13 01/12/14 QUEtiapine [SEROquel] 200 mg PO QPM 03/28/13 01/12/14 Simvastatin 40 mg PO DAILY 03/28/13 01/12/14 busPIRone [Buspar] 30 mg PO TID 03/28/13 01/12/14 ALPRAZolam [Xanax] 0.5 mg PO DAILY 03/29/13 01/12/14 Brimonidine 0.15% Ophth Drops 1 drops OPTH BID 03/29/13 01/12/14 [Alphagan P 0.15%] Brinzolamide 1% Ophth Drops [Azopt] 1 drops OPTH BID 03/29/13 01/12/14 Umeclidinium Brm/Vilanterol Tr 1 each IH DAILY 06/28/18 06/28/18 [Anoro Ellipta 62.5-25 Mcg INH] Knee Scooter 1 unit TD ONCE #1 10/14/18 Diphenoxylate/Atropine [Lomotil] 1 each PO QID PRN #12 tablet 06/20/22 Ondansetron Odt [Zofran] 4 mg TL Q6H PRN #10 tablet 06/20/22 - Allergies Allergies/Adverse Reactions: Allergies Allergy/AdvReac Type Severity Reaction Status Date / Time No Known Drug Allergies Allergy Verified 06/20/22 14:03 - Social History Does the pt smoke?: No Smoking Status: Never smoker Does the pt drink ETOH?: No Does the pt have substance abuse?: No - Immunizations Immunizations are current?: Yes PD ED PE NORMAL - Vitals Vital signs reviewed: Yes - General General: Alert and oriented X 3, Well developed/nourished - HEENT HEENT: Pharynx benign. No: Moist mucous membranes - Neck Neck: Supple, no meningeal sign, No adenopathy - Cardiac Cardiac: RRR, No murmur - Respiratory Respiratory: Clear bilaterally - Abdomen Abdomen: Soft, Non distended, No organomegaly, Other (tender mid abd without masses, hernias. Has some mild general percussion tenderness. ). No: Normal bowel sounds (diminished) - Male Male : Deferred - Rectal Rectal: Deferred - Back Back: No CVA TTP - Derm Derm: Warm and dry. No: Normal color (pale) - Extremities Extremities: Normal ROM s pain, No edema, No calf tenderness / cord - Neuro Neuro: Alert and oriented X 3, No motor deficit, Normal speech Results - Vitals Vitals: Vital Signs - 24 hr 06/20/22 06/20/22 06/20/22 13:59 14:03 16:03 Temperature 36.1 C L 36.5 C 36.5 C Heart Rate 78 78 78 Respiratory 20 20 20 Rate Blood Pressure 156/82 H 156/82 H 156/82 H O2 Saturation 96 96 96 06/20/22 18:00 Temperature 36.5 C Heart Rate 76 Respiratory 18 Rate Blood Pressure 140/80 H O2 Saturation 98 Oxygen O2 Source Room air - Labs Labs: Laboratory Tests 06/20/22 06/20/22 06/20/22 14:23 14:23 17:10 WBC 9.5 RBC 4.21 L Hgb 13.3 L Hct 39.8 L MCV 94.5 H MCH 31.6 H MCHC 33.4 RDW 12.6 Plt Count 257 MPV 9.1 Neut # (Auto) 6.4 Lymph # (Auto) 2.0 [place] # (Auto) 1.0 Eos # (Auto) 0.0 Baso # (Auto) 0.0 Absolute Nucleated RBC 0.00 Band Neuts % (Manual) TRACK LABORER Abnorm Lymph % (Manual) TRACK LABORER Nucleated RBC % 0.0 Neutrophils # (Manual) TRACK LABORER Lymphocytes # (Manual) TRACK LABORER Monocytes # (Manual) TRACK LABORER Eosinophils # (Manual) TRACK LABORER Basophils # (Manual) TRACK LABORER Sodium 139 Potassium 3.5 Chloride 97 L Carbon Dioxide 27 Anion Gap 15.0 H BUN 23 H Creatinine 1.2 Estimated GFR (MDRD) 59 L Glucose 127 H Calcium 10.3 Total Bilirubin 0.8 AST 26 ALT 16 Alkaline Phosphatase 52 Total Protein 8.0 Albumin 4.5 Globulin 3.5 Albumin/Globulin Ratio 1.3 Lipase 26 Urine Color Urine Clarity Urine pH Ur Specific [place] Urine Protein Urine Glucose (UA) Urine Ketones Urine Occult Blood Urine Nitrite Urine Bilirubin Urine Urobilinogen Ur Leukocyte Esterase Ur Microscopic Review Urine Culture Comments Nasal Adenovirus (PCR) NOT DETECTED Nasal B. parapertussis DNA (PCR) NOT DETECTED Nasal Coronavir 229E PCR NOT DETECTED Nasal Coronavir HKU1 PCR NOT DETECTED Nasal Coronavir NL63 PCR NOT DETECTED Nasal Coronavir OC43 PCR NOT DETECTED Nasal Enterovir/Rhinovir PCR NOT DETECTED Nasal Influenza B PCR NOT DETECTED Nasal Influenza A PCR NOT DETECTED Nasal Parainfluen 1 PCR NOT DETECTED Nasal Parainfluen 2 PCR NOT DETECTED Nasal Parainfluen 3 PCR NOT DETECTED Nasal Parainfluen 4 PCR NOT DETECTED Nasal RSV (PCR) NOT DETECTED Nasal B.pertussis DNA PCR NOT DETECTED Nasal C.pneumoniae (PCR) NOT DETECTED Cristian Human Metapneumo PCR NOT DETECTED Nasal M.pneumoniae (PCR) NOT DETECTED Nasal SARS-CoV-2 (PCR) NOT DETECTED 06/20/22 18:16 WBC RBC Hgb Hct MCV MCH MCHC RDW Plt Count MPV Neut # (Auto) Lymph # (Auto) [place] # (Auto) Eos # (Auto) Baso # (Auto) Absolute Nucleated RBC Band Neuts % (Manual) Abnorm Lymph % (Manual) Nucleated RBC % Neutrophils # (Manual) Lymphocytes # (Manual) Monocytes # (Manual) Eosinophils # (Manual) Basophils # (Manual) Sodium Potassium Chloride Carbon Dioxide Anion Gap BUN Creatinine Estimated GFR (MDRD) Glucose Calcium Total Bilirubin AST ALT Alkaline Phosphatase Total Protein Albumin Globulin Albumin/Globulin Ratio Lipase Urine Color YELLOW Urine Clarity CLEAR Urine pH 6.5 Ur Specific [place] <=1.005 Urine Protein NEGATIVE Urine Glucose (UA) NEGATIVE Urine Ketones TRACE Urine Occult Blood TRACE-INTA Urine Nitrite NEGATIVE Urine Bilirubin NEGATIVE Urine Urobilinogen 0.2 (NORMAL) Ur Leukocyte Esterase NEGATIVE Ur Microscopic Review NOT INDICATED Urine Culture Comments NOT INDICATED Nasal Adenovirus (PCR) Nasal B. parapertussis DNA (PCR) Nasal Coronavir 229E PCR Nasal Coronavir HKU1 PCR Nasal Coronavir NL63 PCR Nasal Coronavir OC43 PCR Nasal Enterovir/Rhinovir PCR Nasal Influenza B PCR Nasal Influenza A PCR Nasal Parainfluen 1 PCR Nasal Parainfluen 2 PCR Nasal Parainfluen 3 PCR Nasal Parainfluen 4 PCR Nasal RSV (PCR) Nasal B.pertussis DNA PCR Nasal C.pneumoniae (PCR) Cristian Human Metapneumo PCR Nasal M.pneumoniae (PCR) Nasal SARS-CoV-2 (PCR) - Rads (name of study) abd/pelvic CT Radiology: Prelim report reviewed (no acute process seen on cT. Patient told of the incidental aneurysm finding and he was given a copy of the cT report. ), See rad report PD MEDICAL DECISION MAKING - ED course Complexity details: reviewed results (no acute process. AAA enlarged from prior imaging but still not concerning size. will need following and presume reimage in 6 month to a year. ), re-evaluated patient (he is feeling better with iV fluids and meds. taking pO fluids and crackers here without problems. ), considered differential (He is feeling considerably better after IV fluids and medication. Labs were fairly normal. CT scan did not show any acute abnormality. Presume viral gastroenteritis at this point. He did not give stool sample here but I think that is okay at this point.), d/w patient Departure - Departure Disposition: 01 Home, Self Care Clinical Impression: Nausea vomiting and diarrhea, Dehydration, Viral gastroenteritis Abdominal pain Qualifiers: Abdominal location: periumbilical Qualified Code(s): R10.33 - Periumbilical pain Aneurysm of infrarenal abdominal aorta Qualifiers: Presence of rupture: without rupture Qualified Code(s): I71.43 - Infrarenal abdominal aortic aneurysm, without rupture Condition: Stable Record reviewed to determine appropriate education?: Yes Instructions: ED Gastroenteritis Vs Food Poison Follow-Up: Malinda Maguire PA-C [Primary Care Provider] - Prescriptions: Diphenoxylate/Atropine [Lomotil] 1 each PO QID PRN #12 tablet PRN Reason: Diarrhea Ondansetron Odt [Zofran] 4 mg TL Q6H PRN #10 tablet PRN Reason: Nausea / Vomiting Comments: This seems most likely to be a viral gastroenteritis ("stomach flu"). Your basic blood tests are looking okay. Your respiratory PCR panel does not show any signs of flu, COVID, RSV or other tested viruses. It does not necessarily test for other common viral stomach flu sources. Your CT scan did not show any abnormalities to account for your symptoms. Again this would not necessarily show you a's food poisoning or stomach flu type of process. It does show there is no signs of acute diverticulitis, localized colitis, appendix or gallbladder problems nor any bowel obstruction. Small frequent fluids to remain hydrated. Tylenol every 4-6 hours if needed for fevers or pains. Add the ondansetron/Zofran every 6 hours if needed for nausea. We sent you home with 2 for tonight and wrote a prescription for more in case you need. Use the hydrocodone if needed for stomach pains or diarrhea tonight into tomorrow. I wrote for some antidiarrhea medicine if symptoms persist as well. Recheck if not improved well over the next 2 to 3 days and resolved in that timeframe. Discharge Date/Time: 06/20/22 18:41
[2022-06-20] MEDS ORDERED: SODIUM CHLORIDE 0.9% 1,000 ML IV STA (16:06)
[2022-06-20] MEDS ORDERED: ONDANSETRON 4 MG/2 ML VIAL IVP STA (16:06)
[2022-06-20] MEDS ORDERED: HYDROmorphone 0.5 MG/0.5 ML SYRINGE IVP STA (16:06)
[2022-06-20] MEDS ORDERED: FAMOTIDINE 20 MG/2 ML VIAL IVP STA (16:08)
[2022-06-20] MEDS ORDERED: iohexoL-300 100 ML VIAL ONE (16:40)
[2022-06-20] MEDS ORDERED: iohexoL-300 100 ML VIAL IVP ONE (17:11)
--- NOTE | 2022-06-20 17:30 | CT Report ---
PROCEDURE: CT abdomen pelvis with contrast INDICATIONS: few days mid abd pain, vomiting/diarrhea CONTRAST: 100ml omni 300 TECHNIQUE: After the administration of contrast, 5 mm thick sections acquired from the diaphragms to the sym physis. 5 mm thick coronal and sagittal reformats were acquired. For radiation dose reduction, the following was used: automated exposure control, adjustment of mA and/or kV according to patient size . COMPARISON: 08/14/2020 FINDINGS: Lower thorax: The lung bases are clear. Heart size normal. No hiatal hernia. Liver: Generalized decreased attenuation the liver.r. No contour deformity present. Biliary system: Stones noted layering dependently in the gallbladder. No pericholecystic inflammatory change Pancreas: Unremarkable without mass or inflammation evident. Spleen: Normal in size and density. Adrenals: Normal morphology and density. Reproductive system: Unremarkable as visualized. Urinary system: Normal renal size and attenuation. No renal calculi, hydronephrosis, or solid mass p resent. Urinary bladder unremarkable. Bilateral renal cyst simple cysts measure up to 4.2 cm on the right Gastrointestinal system: The bowel appears unremarkable with no evidence of bowel obstruction or inf lammation. The stomach appears unremarkable. Appendix: No findings to suggest acute appendicitis. Peritoneal spaces: No mesenteric or retroperitoneal adenopathy. No free air. No free fluid. Vasculature: Infrarenal abdominal aortic aneurysm measures up to 4.2 cm, previously 3.1 cm Musculoskeletal: Normal bone mineralization. No acute fractures. Abdominal wall intact without ramonita dence of ventral or inguinal hernias. IMPRESSION: No acute CT findings in the abdomen and pelvis. Enlarging infrarenal abdominal aortic aneurysm now measures 4.2 cm in diameter, previously 3.1 cm Reviewed by: Glen Paredes MD on 06/20/2022 4:28 PM [place] Approved by: Glen Paredes MD on 06/20/2022 4:28 PM [place] Station ID: [id number]
[2022-06-20] MEDS ORDERED: HYDROcod/ACET 5/325 Prepack 4 PO STA (18:00)
[2022-06-20] MEDS ORDERED: DIPHENOX/ATROPINE 2.5/0.025 MG TABLET PO STA (18:00)
[2022-06-20] MEDS ORDERED: ONDANSETRON ODT 4 MG Prepack 2 TL PRN (18:00)
[2022-06-20 18:09] LABS: B. PARAPERTUSSIS- RESP PCR PAN NOT DETECTED; B. PERTUSSIS- RESP PCR PANEL NOT DETECTED; C. PNEUMONIAE- RESP PCR PANEL NOT DETECTED; CORONAVIRUS 229E-RESP PCR NOT DETECTED; CORONAVIRUS HKU1-RESP PCR NOT DETECTED; CORONAVIRUS NL63-RESP PCR NOT DETECTED; CORONAVIRUS OC43-RESP PCR NOT DETECTED; HUMAN METAPNEUMOVIRUS NOT DETECTED; INFLUENZA A- RESP PCR PANEL NOT DETECTED; INFLUENZA B - RESP PCR PANEL NOT DETECTED; M. PNEUMONIAE- RESP PCR PANEL NOT DETECTED; PARAINFLUENZA VIRUS 1 NOT DETECTED; PARAINFLUENZA VIRUS 2 NOT DETECTED; PARAINFLUENZA VIRUS 3 NOT DETECTED; PARAINFLUENZA VIRUS 4 NOT DETECTED; RHINOVIRUS/ENTEROVIRUS NOT DETECTED; RSV- RESP PCR PANEL NOT DETECTED; SARS-CoV-2 -RESP PCR PANEL NOT DETECTED
[2022-06-20 18:24] LABS: BILIRUBIN,URINE NEGATIVE (NEGATIVE); GLUCOSE, URINE (UA) NEGATIVE (NEGATIVE); KETONES,URINE (UA) TRACE mg/dL (NEGATIVE); LEUKOCYTE ESTERASE, URINE NEGATIVE (NEGATIVE); NITRITE,URINE NEGATIVE (NEGATIVE); OCCULT BLOOD,URINE TRACE-INTA (NEGATIVE); PH,URINE 6.5 PH (5.0-7.5); PROTEIN,URINE NEGATIVE (NEGATIVE); UROBILINOGEN,URINE 0.2 (NORMAL) E.U./dL (NORMAL)
[2022-06-20 18:30] VITALS: BP 140/80
[2022-06-20 18:30] LABS: CLARITY,URINE CLEAR (CLEAR)
== END 2022-06-20 18:41 | disposition home or self-care (01) ==
LOC: ED 13:29
DX: R11.2 Nausea with vomiting, unspecified (principal); R19.7 Diarrhea, unspecified; E86.0 Dehydration; I71.43 Infrarenal abdominal aortic aneurysm, without rupture; R10.33 Periumbilical pain; Z20.822 Contact with and (suspected) exposure to COVID-19
CPT/HCPCS: 36415; 74177; 80053; 81003; 83690; 85025; 87633; 96361; 96374; 96375; 99283; 99284; A9270; J1170; Q9967; 81001; 87086

== ENCOUNTER 2022-07-08 09:44 | Outpatient (CLI) | payer MEDICARE ==
--- NOTE | 2022-07-09 12:11 | Ultrasound Report ---
PROCEDURE: Abdomen Limited INDICATIONS: DIARRHEA TECHNIQUE: Real-time focused scanning was performed of the abdomen, with image documentation. COMPARISON: 06/20/2022 CT abdomen and pelvis FINDINGS: Cystic mass in the pancreatic head measuring 1.5 x 1.2 x 1.1 cm. No pancreatic ductal dila tation. Increased hepatic parenchymal echogenicity consistent with hepatic steatosis. No focal hepati c mass. No intrahepatic or extrahepatic biliary ductal dilatation. Shadowing gallstone measuring 7 mm near the fundus of the gallbladder. No gallbladder wall thickening or pericholecystic fluid. No sign ificant abnormality in the right kidney. Simple cyst in the upper pole right kidney measures 4.4 cm, stable from comparison CT. IMPRESSION: Cystic pancreatic head mass is suspicious for neoplasm. Pancreatic protocol MRI recommended. Reviewed by: Patricio Ordoñez MD on 07/09/2022 11:09 AM [facility] Approved by: Patricio Ordoñez MD on 07/09/2022 11:09 AM [facility] Station ID: [id number]
== END 2022-07-08 09:45 | disposition home or self-care (01) ==
LOC: DI 09:44
PROVIDERS: ATTEND Physician Assistant Medical
DX: K86.2 Cyst of pancreas (principal); R19.7 Diarrhea, unspecified

== ENCOUNTER 2022-07-17 09:42 | Outpatient (CLI) | payer MEDICARE ==
[~2022-07-17 09:42] MED LIST changes: -ALBUTEROL NEB 2.5 MG/3 ML INH SCH; +GADOBUTROL 7.5 MMOL/7.5 ML VIAL ONE
[2022-07-17] MEDS ORDERED: GADOBUTROL 7.5 MMOL/7.5 ML VIAL IVP ONE (11:22)
--- NOTE | 2022-07-19 01:12 | MRI Report ---
PROCEDURE: ABDOMEN W/WO INDICATIONS: MASS OF PANCREAS TECHNIQUE: Noncontrast 3 mm thick sections acquired through the pancreas. After the administration of intraveno us contrast, 5 mm thick sections acquired from the diaphragm to the symphysis. 5 mm coronal and sagi ttal reformats were acquired. For radiation dose reduction, the following was used: automated expos ure control, adjustment of mA and/or kV according to patient size. COMPARISON: Ultrasound abdomen 07/08/2022, CT abdomen pelvis 06/20/2022, 08/14/2020.. FINDINGS: Image quality: There is mild motion artifact and inhomogeneous fat saturation limiting evaluation. Lung bases: Lung bases are clear. Heart size is normal. Pancreas: Within the pancreatic head, there is a small oval circumscribed cystic lesion measuring up to 1.2 x 0.9 x 0.9 cm on series 6 image 14 and coronal series 4 image 11. There is a thin enhancing wall and suggestion of a punctate eccentric focus of enhancement internally. No other discrete solid component. The lesion is demonstrated anterior to and adjacent to the main pancreatic duct which is n ondistended. There is no intra or extra hepatic biliary ductal dilatation. There is a small dependent filling defe ct within the distal common bile duct measuring approximately 0.3 cm suggestive of choledocholithiasi s. Other solid organs: The liver demonstrates no discrete mass or suspicious enhancement. No adrenal no dules. Kidneys demonstrate no hydronephrosis. There are multiple bilateral renal cysts noted. Spleen is normal in size. Peritoneum and bowel: Visualized bowel loops demonstrate normal wall thickness and caliber. No free fluid or air. Nodes and vessels: No retroperitoneal or mesenteric adenopathy by size criteria. There is aneurysmal dilatation of the infrarenal abdominal aorta which measures up to 3.7 cm in anterior posterior dimen farrukh. Findings are similar to the recent prior study but appear increased from the prior CT of 021 on which it measured approximately 3.2 cm. Bones: No suspicious bony lesions. No vertebral body compression fractures. Miscellaneous: No ventral hernias. IMPRESSION: 1. Small cystic lesion within the pancreatic head adjacent to the main pancreatic duct is suggestive of a side branch intraductal papillary mucinous neoplasm (IPMN). There is suggestion of a punctate in ternal focus of enhancement but no other discrete solid nodular component is identified. No pancreati c duct dilatation. No other solid pancreatic mass identified. A follow CT may performed in 12 months to demonstrate stability if clinically indicated. 2. Mild aneurysmal dilatation of the infrarenal abdominal aorta which appears slightly increased over time. Recommend continued surveillance. Reviewed by: Alirio Wright MD on 07/19/2022 1:10 AM PST Approved by: Alirio Wright MD on 07/19/2022 1:10 AM [facility] Station ID: [id number]
== END 2022-07-17 09:43 | disposition home or self-care (01) ==
LOC: DI 09:42
PROVIDERS: ATTEND Physician Assistant Medical
DX: K86.89 Other specified diseases of pancreas (principal); I71.43 Infrarenal abdominal aortic aneurysm, without rupture
CPT/HCPCS: 74183; A9585

== ENCOUNTER 2022-08-17 08:00 | Day surgery (SDC) | payer MEDICARE ==
[~2022-08-17 08:00] MED LIST changes: +CEFAZOLIN 2G/50ML 0.9% NS 2 GM/50 ML BAG IV ONE; -GADOBUTROL 7.5 MMOL/7.5 ML VIAL ONE; +LACTATED RINGERS 1,000 ML IV ONE
[2022-08-17] MEDS ORDERED: BUPIVACAINE 0.25% PF 30 ML VIAL ONE (08:45)
--- NOTE | 2022-08-17 09:03 | ANESTHESIA ---
Pre-Anesthesia VS, & Labs - Diagnosis chronic cholecystitis - Procedure lap jann Vital Signs: Temp Pulse Resp BP Pulse Ox O2 Flow Rate 36 C L 88 16 144/87 H 95 08/17/22 08:09 08/17/22 08:09 08/17/22 08:09 08/17/22 08:09 08/17/22 08:09 Height: 5 ft 11 in Weight (kg): 67 kg Body Mass Index: 20.6 BMI Classification: Normal - NPO >8 hours Home Medications and Allergies Home Medications: Ambulatory Orders Acetaminophen [Tylenol] 650 mg PO Q6H PRN 08/10/22 Calcium Carbonate [Calcium] 600 mg PO DAILY 08/10/22 Calcium Carbonate [Tums (Calcium Carbonate 500mg)] 500 mg PO PRN PRN 08/10/22 Cholecalciferol [Vitamin D3] 25 mcg PO DAILY 08/10/22 Fluticasone [Flonase] 1 sprays LUIZA BID PRN 08/10/22 Levothyroxine Sodium [Levothyroxine] 50 mcg PO DAILY 08/10/22 Omeprazole 20 mg PO DAILY 08/10/22 Sertraline HCl 100 mg PO DAILY 08/10/22 Timolol 0.5% Ophth Drops [Timoptic 0.5% Ophth Drops] 1 drops OPTH BID 08/10/22 Tiotropium [place] [Spiriva] 1 puffs INH DAILY 08/10/22 Vitamin B Complex 1 each PO DAILY 08/10/22 hydrOXYzine HCL [Hydroxyzine HCl] 50 mg PO DAILY PRN 08/10/22 Albuterol [Proventil Hfa] 1 puffs INH Q4-6H 03/28/13 QUEtiapine [SEROquel] 200 mg PO QPM 03/28/13 Simvastatin 40 mg PO DAILY 03/28/13 Acetaminophen [Tylenol] 650 mg PO Q6H PRN 08/10/22 Calcium Carbonate [Calcium] 600 mg PO DAILY 08/10/22 Calcium Carbonate [Tums (Calcium Carbonate 500mg)] 500 mg PO PRN PRN 08/10/22 Cholecalciferol [Vitamin D3] 25 mcg PO DAILY 08/10/22 Fluticasone [Flonase] 1 sprays LUIZA BID PRN 08/10/22 Levothyroxine Sodium [Levothyroxine] 50 mcg PO DAILY 08/10/22 Omeprazole 20 mg PO DAILY 08/10/22 Sertraline HCl 100 mg PO DAILY 08/10/22 Timolol 0.5% Ophth Drops [Timoptic 0.5% Ophth Drops] 1 drops OPTH BID 08/10/22 Tiotropium [place] [Spiriva] 1 puffs INH DAILY 08/10/22 Vitamin B Complex 1 each PO DAILY 08/10/22 hydrOXYzine HCL [Hydroxyzine HCl] 50 mg PO DAILY PRN 08/10/22 Allergies/Adverse Reactions: Allergies Allergy/AdvReac Type Severity Reaction Status Date / Time No Known Drug Allergies Allergy Verified 06/20/22 14:03 Anes History & Medical History - Anesthetic History Anesthesia Complications: reports: No previous complications - Medical History Cardiovascular: reports: High cholesterol Pulmonary: reports: Asthma, COPD Gastrointestinal: reports: GERD Urinary: reports: None Neuro: reports: None Musculoskeletal: reports: Osteoarthritis Endocrine/Autoimmune: reports: HyPOthyroidism, Other Blood Disorders: reports: None Skin: reports: None Smoking Status: Former smoker Psychosocial: reports: Depression, Anxiety History of Cancer?: No - Surgical History General: reports: Colonoscopy Eyes Ears Nose Throat (EENT): reports: Cataracts, Other Orthopedic: reports: Other (orif elbow and facial fracture) Exam General: Alert, Oriented x3, Cooperative, No acute distress Dental: WNL Mouth Openin Fingerbreadth Neck Mobility: Normal Mallampati classification: I Thyromental Distance: 4-6 cm Mental/Cognitive Status: Alert/Oriented X3, Normal for patient Plan Anesthesia Type: General Consent for Procedure(s) Verified and Reviewed: Yes Code Status: Attempt Resuscitation ASA classification: 2-Mild systemic disease Is this case an emergency?: No
[2022-08-17] MEDS ORDERED: PROPOFOL 200 MG/20 ML VIAL IVP ONE (09:08)
[2022-08-17] MEDS ORDERED: ROCURONIUM 50 MG/5 ML VIAL ONE (09:08)
[2022-08-17] MEDS ORDERED: fentaNYL 100 MCG/2 ML VIAL ONE ×2 (09:08→09:52)
[2022-08-17] MEDS ORDERED: BUPIVACAINE 0.25% PF 30 ML VIAL SUBQ ONE (09:16)
[2022-08-17] MEDS ORDERED: SODIUM CHLORIDE 0.9% 10 ML VIAL IVP ONE (09:36)
[2022-08-17] MEDS ORDERED: fentaNYL 100 MCG/2 ML VIAL IVP PRN (09:54)
[2022-08-17] MEDS ORDERED: ONDANSETRON 4 MG/2 ML VIAL IVP PRN ×2 (09:54→10:35)
[2022-08-17] MEDS ORDERED: DEXAMETHASONE 4 MG/ML VIAL ONE (09:54)
[2022-08-17] MEDS ORDERED: MORPHINE 2 MG/ML CARPUJECT IVP PRN (09:54)
[2022-08-17] MEDS ORDERED: HYDROmorphone 0.5 MG/0.5 ML SYRINGE IVP PRN (09:54)
[2022-08-17] MEDS ORDERED: ATROPINE ABBOJECT 1 MG/10 ML SYRINGE IVP PRN (09:54)
[2022-08-17] MEDS ORDERED: NALOXONE 0.4 MG/ML VIAL IVP PRN (09:54)
[2022-08-17] MEDS ORDERED: LACTATED RINGERS 1,000 ML IV SCH (10:00)
[2022-08-17] MEDS ORDERED: SUGAMMADEX 200 MG/2 ML VIAL IVP ONE (10:10)
[2022-08-17] MEDS ORDERED: HYDROcod/ACETAM 5/325 MG TABLET PO PRN (10:35)
[2022-08-17] MEDS ORDERED: oxyCODONE 5 MG TABLET PO PRN (10:35)
[2022-08-17] MEDS ORDERED: LACTATED RINGERS 600 ML IV ONE (10:35)
--- NOTE | 2022-08-17 10:51 | OPERATIVE REPORT ---
Operative Report - General Procedure Date: 08/17/22 Planned Procedure: lap jann Pre-Op Diagnosis: chronic cholecystitis Procedure Performed: lap jann Post Op Diagnosis: chronic cholecystitis - Procedure Note Anesthesia Technique: General ET tube, Local Pathology: gallbladder Estimated Blood Loss (mL): 2 Drain/Tube Type: Other (none) Indications: abdominal pain, nausea, gallstones/ sludge Findings: thin walled distended gallbladder Complications: none - Other Other Information/Narrative: The patient was properly identified, brought to the operating room and placed in supine position. Sequential compression devices were placed. General endotracheal anesthesia was induced. The patient was prepped and draped in a sterile fashion and given preoperative antibiotics. Local anesthetic was given to incision areas. An incision was made in the periumbilical area. Dissection proceeded down to fascia. The fascia was incised lifted upwards and abdomen entered with a Veress needle. CO2 was insufflated to a pressure of 15. An 11 mm trocar followed by a 30 degree scope was placed. There was no evidence of injury from Veress needle or trocar placement. Under direct vision 2 5 mm trochars were placed in the right upper quadrant and an 11 mm trocar was placed in the epigastrium. Body of the gallbladder was retracted anterior. Lateral attachments were partially taken down further mobilizing the gallbladder more anterior and away from the duodenum. The infundibulum of the gallbladder was then retracted right lateral and caudad. With minimal use of cautery a large bare cystic plate area or window was carefully created. The cystic duct was inspected from right lateral and left lateral positions. [] The cystic duct was then clipped at the gallbladder and 3 times slightly proximal and sharply divided. The cystic artery was clipped at the gallbladder and then 2 times slightly proximal and sharply divided. The gallbladder was mobilized off from the bed of the liver with hook cautery. The gallbladder was brought out through the epigastric trocar site. Hemostasis was assured. Trochars were removed under direct vision. Fascia at the larger trocar sites was closed with [id number] are running 0 Vicryl suture. Subcutaneous tissue was irrigated and skin closed with interrupted 4-0 Monocryl. Dressings were applied. Patient tolerated the procedure well was awakened and brought to recovery in good condition.
[2022-08-17] MEDS ORDERED: HYDROmorphone 1 MG/ML CARPUJECT ONE (10:52)
--- NOTE | 2022-08-17 11:14 | ANESTHESIA POST OP EVALUATION ---
Anesthesia Post Eval - Post Anesthesia Eval Vitals: Last Vital Signs Temp 36.3 C L 08/17/22 11:08 Pulse 57 L 08/17/22 11:08 Resp 12 08/17/22 11:08 BP 149/64 H 08/17/22 11:08 Pulse Ox 97 08/17/22 11:08 O2 Flow Rate CV Function Including HR & BP: Stable Pain Control: Satisfactory Nausea & Vomiting: Negative Mental Status: Baseline Respiratory Status: Airway Patent Hydration Status: Satisfactory Anesthesia Complications: None
[2022-08-17 12:07] VITALS: BP 145/86
== END 2022-08-17 08:01 | disposition home or self-care (01) ==
LOC: SDS 08:00
PROVIDERS: ATTEND Surgery
PROC: 0FT44ZZ Resection of Gallbladder, Percutaneous Endoscopic Approach (ICD-10-PCS; principal; 2022-08-17 09:00)
DX: K80.10 Calculus of gallbladder with chronic cholecystitis without obstruction (principal); J44.9 Chronic obstructive pulmonary disease, unspecified; I71.43 Infrarenal abdominal aortic aneurysm, without rupture; F41.9 Anxiety disorder, unspecified; Z87.891 Personal history of nicotine dependence
CPT/HCPCS: 47562; A9270; J0690; J1170; J7120

== ENCOUNTER 2022-11-10 10:26 | Outpatient (CLI) | payer MEDICARE ==
[2022-11-10 12:10] LABS: ESTIMATED AVERAGE GLUCOSE 114 mg/dL (70-100); HEMOGLOBIN A1c% 5.6 % (4.27-6.07)
[2022-11-10 12:11] LABS: ALBUMIN 4.2 g/dL (3.2-5.5); ALBUMIN/GLOBULIN RATIO 1.2 (1.0-2.2); ALKALINE PHOSPHATASE 69 IU/L (42-121); ALT ALANINE AMINOTRANSFERASE 18 IU/L (10-60); AST ASPARTATE AMINOTRANSFERASE 28 IU/L (10-42); BILIRUBIN,TOTAL 0.3 mg/dL (0.2-1.0); BUN - BLOOD UREA NITROGEN 22 mg/dL (6-20); CALCIUM 9.3 mg/dL (8.5-10.3); CARBON DIOXIDE - CO2 33 mmol/L (21-32); CHLORIDE 102 mmol/L (101-111); CHOL/HDL RATIO 3.2 (<5.0); CHOLESTEROL 139 mg/dL; CREATININE 1.2 mg/dL (0.6-1.2); GFR - MDRD 59 (>89); GLUCOSE 129 mg/dL (70-100); HDL CHOLESTEROL 43 mg/dL; LDL CHOLESTEROL,CALCULATED 55 mg/dL; LDL/HDL RATIO 1.3 (<3.6); POTASSIUM 4.3 mmol/L (3.5-5.0); SODIUM 139 mmol/L (135-145); TOTAL PROTEIN 7.7 g/dL (6.7-8.2); TRIGLYCERIDES 204 mg/dL; VLDL CHOLESTEROL 41 mg/dL
[2022-11-10 12:22] LABS: THYROID STIMULATING HORMONE 4.27 uIU/mL (0.34-5.60)
== END 2022-11-10 10:27 | disposition home or self-care (01) ==
LOC: LAB.N 10:26
PROVIDERS: ATTEND Physician Assistant Medical
DX: E78.5 Hyperlipidemia, unspecified (principal); R73.9 Hyperglycemia, unspecified; E03.9 Hypothyroidism, unspecified
CPT/HCPCS: 36415; 80053; 80061; 83036; 83721; 84443

== ENCOUNTER 2023-05-10 10:48 | Outpatient (CLI) | payer MEDICARE ==
[2023-05-10 18:03] LABS: ALBUMIN 4.4 g/dL (3.2-5.5); ALBUMIN/GLOBULIN RATIO 1.5 (1.0-2.2); BILIRUBIN,TOTAL 0.3 mg/dL (0.2-1.0); CALCIUM 9.6 mg/dL (8.5-10.3); CREATININE 1.1 mg/dL (0.6-1.3); POTASSIUM 4.6 mmol/L (3.5-4.5); TOTAL PROTEIN 7.3 g/dL (6.4-8.9)
[2023-05-10 21:31] LABS: ESTIMATED AVERAGE GLUCOSE 126 mg/dL (70-100)
== END 2023-05-10 10:49 | disposition home or self-care (01) ==
LOC: LAB.N 10:48
PROVIDERS: ATTEND Physician Assistant Medical
DX: R73.9 Hyperglycemia, unspecified (principal)
CPT/HCPCS: 36415; 80053; 83036

== ENCOUNTER 2023-06-21 13:25 | Outpatient (CLI) | payer MEDICARE ==
--- NOTE | 2023-06-21 15:56 | CT Report ---
PROCEDURE: CHEST WO INDICATIONS: PULMONARY NODULE TECHNIQUE: Noncontrast 1mm axial images were acquired from the pulmonary apices to the posterior costophrenic an gles. Axial 5 mm soft tissue kernel reconstructions were performed as well as 8 mm axial MIP and cor onal and sagittal 5 mm reformations. For radiation dose reduction, the following was used: automate d exposure control, adjustment of mA and/or kV according to patient size. COMPARISON: 08/04/2020 FINDINGS: Image quality: Excellent. Lungs and pleura: No consolidation. No pleural effusions. No pneumothorax. No suspicious pulmonary n odules which require follow up. A 4 mm posterior right apical pulmonary nodule is unchanged compared to prior. Mild centrilobular emphysematous changes in the apices. Mediastinum: Heart size is normal. No pericardial effusion. Coronary arteries have atherosclerotic ca lcifications. No large vessel abnormality. No mediastinal adenopathy by size criteria. Chest wall and lower neck: Thyroid is unremarkable. No axillary or supraclavicular adenopathy by size . Bones: No aggressive osseous abnormality. Upper Abdomen: 4 cm simple cyst of the right kidney. 2 cm simple cyst of the left kidney. The pancrea s is atrophic. Status post cholecystectomy. IMPRESSION: 1. No acute abnormality. 2. 4 mm posterior right apical pulmonary nodule is unchanged for over 2 years and is considered benig n. 3. Coronary artery vascular disease. Reviewed by: Addi Zelaya on 06/21/2023 3:55 PM PST Approved by: Addi Zelaya on 06/21/2023 3:55 PM PST Station ID: [id number]
== END 2023-06-21 13:26 | disposition home or self-care (01) ==
LOC: DI 13:25
PROVIDERS: ATTEND Physician Assistant Medical
DX: R91.1 Solitary pulmonary nodule (principal); I25.10 Atherosclerotic heart disease of native coronary artery without angina pectoris

== ENCOUNTER 2023-11-09 13:36 | Outpatient (CLI) | payer MEDICARE ==
[2023-11-09 17:36] LABS: BASOPHILS # (AUTO) 0.1 10^3/uL (0.0-0.1); EOSINOPHILS # (AUTO) 0.2 10^3/uL (0.0-0.7); EOSINOPHILS % (AUTO) 3.4 %; HCT - HEMATOCRIT 38.3 % (42.0-52.0); HGB - HEMOGLOBIN 12.1 g/dL (14.0-18.0); LYMPHOCYTES # (AUTO) 1.9 10^3/uL (1.5-3.5); LYMPHOCYTES % (AUTO) 28.5 %; MEAN CORPUSCULAR HEMOGLOBIN 32.4 pg (27.0-31.0); MEAN CORPUSCULAR HGB CONC 31.6 g/dL (32.0-36.0); MEAN CORPUSCULAR VOLUME 102.7 fL (80.0-94.0); MEAN PLATELET VOLUME 9.1 fL (7.4-11.4); MONOCYTES # (AUTO) 0.7 10^3/uL (0.0-1.0); NEUTROPHILS # (AUTO) 3.8 10^3/uL (1.5-6.6); PLT - PLATELET COUNT 248 10^3/uL (130-450); RED BLOOD COUNT 3.73 10^6/uL (4.70-6.10); RED CELL DISTRIBUTION WIDTH 12.9 % (12.0-15.0); WHITE BLOOD COUNT 6.7 x10^3/uL (4.8-10.8)
[2023-11-09 18:06] LABS: THYROID STIMULATING HORMONE 2.08 uIU/mL (0.34-5.60)
[2023-11-09 18:22] LABS: ALBUMIN 4.2 g/dL (3.2-5.5); ALBUMIN/GLOBULIN RATIO 1.4 (1.0-2.2); ALKALINE PHOSPHATASE 91 IU/L (42-121); ALT ALANINE AMINOTRANSFERASE 24 IU/L (10-60); AST ASPARTATE AMINOTRANSFERASE 20 IU/L (10-42); BILIRUBIN,TOTAL 0.3 mg/dL (0.2-1.0); BUN - BLOOD UREA NITROGEN 20 mg/dL (6-20); CARBON DIOXIDE - CO2 29 mmol/L (21-32); CHLORIDE 104 mmol/L (101-111); CHOL/HDL RATIO 2.7 (<5.0); CHOLESTEROL 124 mg/dL; CREATININE 1.2 mg/dL (0.6-1.3); GFR - MDRD 58 (>89); GLUCOSE 101 mg/dL (74-104); HDL CHOLESTEROL 46 mg/dL; LDL CHOLESTEROL,CALCULATED 43 mg/dL; LDL/HDL RATIO 0.9 (<3.6); POTASSIUM 4.7 mmol/L (3.5-4.5); SODIUM 138 mmol/L (135-145); TOTAL PROTEIN 7.3 g/dL (6.4-8.9); TRIGLYCERIDES 174 mg/dL (48-352); VLDL CHOLESTEROL 35 mg/dL
== END 2023-11-09 13:37 | disposition home or self-care (01) ==
LOC: LAB.N 13:36
PROVIDERS: ATTEND Physician Assistant Medical
DX: E78.5 Hyperlipidemia, unspecified (principal); E03.9 Hypothyroidism, unspecified; D64.9 Anemia, unspecified
CPT/HCPCS: 36415; 80053; 80061; 83721; 84443; 85025

== ENCOUNTER 2023-12-31 14:53 | Outpatient (CLI) | payer MEDICARE ==
[2023-12-31 18:35] LABS: BASOPHILS # (AUTO) 0.1 10^3/uL (0.0-0.1); BASOPHILS % (AUTO) 0.6 %; EOSINOPHILS # (AUTO) 0.3 10^3/uL (0.0-0.7); EOSINOPHILS % (AUTO) 3.4 %; HCT - HEMATOCRIT 32.7 % (42.0-52.0); HGB - HEMOGLOBIN 10.4 g/dL (14.0-18.0); LYMPHOCYTES # (AUTO) 1.8 10^3/uL (1.5-3.5); LYMPHOCYTES % (AUTO) 23.2 %; MEAN CORPUSCULAR HEMOGLOBIN 32.6 pg (27.0-31.0); MEAN CORPUSCULAR HGB CONC 31.8 g/dL (32.0-36.0); MEAN CORPUSCULAR VOLUME 102.5 fL (80.0-94.0); MEAN PLATELET VOLUME 8.9 fL (7.4-11.4); MONOCYTES # (AUTO) 0.8 10^3/uL (0.0-1.0); MONOCYTES % (AUTO) 9.8 %; NEUTROPHILS # (AUTO) 4.9 10^3/uL (1.5-6.6); NEUTROPHILS % (AUTO) 62.4 %; PLT - PLATELET COUNT 449 10^3/uL (130-450); RED BLOOD COUNT 3.19 10^6/uL (4.70-6.10); RED CELL DISTRIBUTION WIDTH 12.7 % (12.0-15.0); WHITE BLOOD COUNT 7.9 x10^3/uL (4.8-10.8)
[2023-12-31 19:12] LABS: ALBUMIN 3.5 g/dL (3.2-5.5); ALBUMIN/GLOBULIN RATIO 1.1 (1.0-2.2); BILIRUBIN,TOTAL 0.4 mg/dL (0.2-1.0); CALCIUM 9.2 mg/dL (8.5-10.3); CREATININE 1.1 mg/dL (0.6-1.3); POTASSIUM 4.6 mmol/L (3.5-4.5); TOTAL PROTEIN 6.6 g/dL (6.4-8.9)
== END 2023-12-31 14:54 | disposition home or self-care (01) ==
LOC: LAB.N 14:53
PROVIDERS: ATTEND Physician Assistant Medical
DX: K80.50 Calculus of bile duct without cholangitis or cholecystitis without obstruction (principal); Z12.5 Encounter for screening for malignant neoplasm of prostate
CPT/HCPCS: 36415; 80053; 83690; 85025; G0103; 84153

== ENCOUNTER 2024-01-16 13:17 | Outpatient (CLI) | payer MEDICARE ==
[2024-01-16 13:27] LABS: BASOPHILS # (AUTO) 0.1 10^3/uL (0.0-0.1); EOSINOPHILS # (AUTO) 0.3 10^3/uL (0.0-0.7); EOSINOPHILS % (AUTO) 3.8 %; HGB - HEMOGLOBIN 11.8 g/dL (14.0-18.0); LYMPHOCYTES # (AUTO) 1.8 10^3/uL (1.5-3.5); LYMPHOCYTES % (AUTO) 25.7 %; MEAN CORPUSCULAR HEMOGLOBIN 31.5 pg (27.0-31.0); MEAN CORPUSCULAR HGB CONC 31.1 g/dL (32.0-36.0); MEAN CORPUSCULAR VOLUME 101.3 fL (80.0-94.0); MEAN PLATELET VOLUME 8.8 fL (7.4-11.4); MONOCYTES # (AUTO) 0.8 10^3/uL (0.0-1.0); MONOCYTES % (AUTO) 10.5 %; NEUTROPHILS # (AUTO) 4.2 10^3/uL (1.5-6.6); NEUTROPHILS % (AUTO) 58.6 %; PLT - PLATELET COUNT 223 10^3/uL (130-450); RED BLOOD COUNT 3.75 10^6/uL (4.70-6.10); RED CELL DISTRIBUTION WIDTH 13.2 % (12.0-15.0); WHITE BLOOD COUNT 7.2 x10^3/uL (4.8-10.8)
[2024-01-16 13:41] LABS: ALBUMIN 4.1 g/dL (3.2-5.5); ALBUMIN/GLOBULIN RATIO 1.3 (1.0-2.2); BILIRUBIN,TOTAL 0.4 mg/dL (0.2-1.0); CALCIUM 9.6 mg/dL (8.5-10.3); CREATININE 1.1 mg/dL (0.6-1.3); POTASSIUM 4.6 mmol/L (3.5-4.5); TOTAL PROTEIN 7.2 g/dL (6.4-8.9)
== END 2024-01-16 13:18 | disposition home or self-care (01) ==
LOC: LAB 13:17
PROVIDERS: ATTEND Physician Assistant Medical
DX: K80.50 Calculus of bile duct without cholangitis or cholecystitis without obstruction (principal)
CPT/HCPCS: 36415; 80053; 83690; 85025

== ENCOUNTER 2024-04-19 15:31 | Outpatient (CLI) | payer MEDICARE ==
[2024-04-19 15:52] LABS: BASOPHILS # (AUTO) 0.1 10^3/uL (0.0-0.1); BASOPHILS % (AUTO) 0.7 %; EOSINOPHILS # (AUTO) 0.1 10^3/uL (0.0-0.7); EOSINOPHILS % (AUTO) 1.3 %; HCT - HEMATOCRIT 37.7 % (42.0-52.0); HGB - HEMOGLOBIN 12.2 g/dL (14.0-18.0); MEAN CORPUSCULAR HEMOGLOBIN 32.6 pg (27.0-31.0); MEAN CORPUSCULAR HGB CONC 32.4 g/dL (32.0-36.0); MEAN CORPUSCULAR VOLUME 100.8 fL (80.0-94.0); MEAN PLATELET VOLUME 8.9 fL (7.4-11.4); MONOCYTES # (AUTO) 0.7 10^3/uL (0.0-1.0); MONOCYTES % (AUTO) 8.3 %; NEUTROPHILS # (AUTO) 5.7 10^3/uL (1.5-6.6); NEUTROPHILS % (AUTO) 66.5 %; PLT - PLATELET COUNT 239 10^3/uL (130-450); RED BLOOD COUNT 3.74 10^6/uL (4.70-6.10); RED CELL DISTRIBUTION WIDTH 12.8 % (12.0-15.0); WHITE BLOOD COUNT 8.6 x10^3/uL (4.8-10.8)
[2024-04-19 16:04] LABS: ALBUMIN 4.2 g/dL (3.2-5.5); ALBUMIN/GLOBULIN RATIO 1.3 (1.0-2.2); ALKALINE PHOSPHATASE 68 IU/L (42-121); ALT ALANINE AMINOTRANSFERASE 13 IU/L (10-60); AST ASPARTATE AMINOTRANSFERASE 20 IU/L (10-42); BILIRUBIN,TOTAL 0.3 mg/dL (0.2-1.0); BUN - BLOOD UREA NITROGEN 24 mg/dL (6-20); CALCIUM 9.5 mg/dL (8.5-10.3); CARBON DIOXIDE - CO2 32 mmol/L (21-32); CHLORIDE 101 mmol/L (101-111); CHOLESTEROL 117 mg/dL; CREATININE 1.3 mg/dL (0.6-1.3); GFR - MDRD 53 (>89); GLUCOSE 100 mg/dL (74-104); HDL CHOLESTEROL 39 mg/dL; LDL CHOLESTEROL,CALCULATED 41 mg/dL; LDL/HDL RATIO 1.1 (<3.6); POTASSIUM 4.7 mmol/L (3.5-4.5); SODIUM 138 mmol/L (135-145); TOTAL PROTEIN 7.4 g/dL (6.4-8.9); TRIGLYCERIDES 183 mg/dL; VLDL CHOLESTEROL 37 mg/dL
[2024-04-19 16:22] LABS: FERRITIN 98.7 ng/mL (23.9-336.2)
== END 2024-04-19 15:32 | disposition home or self-care (01) ==
LOC: LAB 15:31
PROVIDERS: ATTEND Physician Assistant Medical
DX: E78.5 Hyperlipidemia, unspecified (principal); D64.9 Anemia, unspecified
CPT/HCPCS: 36415; 80053; 80061; 82607; 82728; 83721; 85025